=== PATIENT | female | born 1940 | race African-American/Black ===

== ENCOUNTER 2017-12-08 05:40 | Inpatient (IN) ==
[~2017-12-08 05:40] MED LIST: FAMOTIDINE 20 MG TABLET PO ONE
[2017-12-08] MEDS ORDERED: ceFAZolin 1,000 MG in SYRINGE 1 EACH IV ONE (06:00)
[2017-12-08] MEDS ORDERED: VANCOMYCIN INJ 1,000 MG in SODIUM CHLORIDE 0.9% 250 ML IV ONE (06:00)
[2017-12-08] MEDS ORDERED: FAMOTIDINE 20 MG TABLET PO ONE (06:00)
[2017-12-08] MEDS ORDERED: DIAZEPAM 5 MG TABLET PO ONE (06:00)
[2017-12-08] MEDS ORDERED: TRANEXAMIC ACID 1,000 MG/10 ML VIAL ONE (06:34)
[2017-12-08] MEDS ORDERED: BACITRACIN OINT 0.9 GM PACK TOP ONE (06:34)
[2017-12-08] MEDS ORDERED: BUPIVACAINE SPINAL 0.75% 2 ML AMP SPINAL ONE (06:55)
[2017-12-08] MEDS ORDERED: VANCOMYCIN 1,000 MG VIAL ONE (07:08)
[2017-12-08] MEDS ORDERED: ceFAZolin 1,000 MG VIAL ONE (07:08)
[2017-12-08] MEDS ORDERED: DIAZEPAM 5 MG TABLET ONE (07:09)
[2017-12-08] MEDS ORDERED: FAMOTIDINE 20 MG TABLET ONE (07:09)
[2017-12-08] MEDS ORDERED: LACTATED RINGERS 1,000 ML IV SCH (07:30)
[2017-12-08] MEDS ORDERED: ONDANSETRON 4 MG/2 ML VIAL IV PRN ×2 (07:54→09:53)
[2017-12-08] MEDS ORDERED: ZALEPLON 5 MG CAPSULE PO PRN (07:54)
[2017-12-08] MEDS ORDERED: MAGNESIUM HYDROXIDE SUSP 30 ML UDCUP PO PRN (07:54)
[2017-12-08] MEDS ORDERED: diphenhydrAMINE CAP 25 MG CAPSULE PO PRN (07:54)
[2017-12-08] MEDS ORDERED: oxyCODONE IR 5 MG TABLET PO PRN ×2 (07:54)
[2017-12-08 09:09] LABS: Apearance,Urine CLEAR (Clear); Bilirubin,Urine Negative (Negative); Blood, Urine Negative (Negative); Glucose,Urine (UA) Negative (Negative); Ketones,Urine Negative (Negative); Nitrite,Urine Negative (Negative); Protein,Urine Negative; RBC,Urine 2 /HPF (0-4); Squamous Epithelial Cell,Urine Occasional /HPF (0-10); Urine Color Colorless (Yellow); Urine Specific Gravity 1.006 (1.001-1.035); Urine Urobilinogen < 2.0 EU/DL (0.2-1.0); WBC,Urine <1 /HPF (0-6)
[2017-12-08] MEDS ORDERED: SEVOFLURANE 1 UNIT/15 MINUTE INH ONE (09:36)
[2017-12-08] MEDS ORDERED: PROPOFOL 200 MG/20 ML VIAL IV ONE (09:36)
[2017-12-08] MEDS ORDERED: fentaNYL 100 MCG/2 ML VIAL ONE (09:36)
[2017-12-08] MEDS ORDERED: MIDAZOLAM 2 MG/2 ML VIAL ONE (09:36)
[2017-12-08] MEDS ORDERED: ONDANSETRON 4 MG/2 ML VIAL ONE (09:37)
[2017-12-08] MEDS ORDERED: ePHEDrine 50 MG/ML AMP ONE (09:37)
[2017-12-08] MEDS ORDERED: NEOSTIGMINE 10 MG/10 ML VIAL ONE (09:37)
[2017-12-08] MEDS ORDERED: ROCURONIUM 100 MG/10 ML VIAL IV ONE (09:37)
[2017-12-08] MEDS ORDERED: SODIUM CHLORIDE 0.9% 100 ML IV ONE ×2 (09:37→09:38)
[2017-12-08] MEDS ORDERED: LACTATED RINGERS 1,000 ML IV ONE (09:37)
[2017-12-08] MEDS ORDERED: GLYCOPYRROLATE 0.4 MG/2 ML VIAL ONE (09:37)
[2017-12-08] MEDS ORDERED: ACETAMINOPHEN 1,000 MG/100 ML VIAL IV ONE (09:37)
[2017-12-08] MEDS ORDERED: PHENYLEPHRINE 10 MG/1 ML VIAL IV ONE (09:38)
[2017-12-08] MEDS: HYDROmorphone 2 MG/1 ML VIAL IV PRN ×2 (09:56→10:05)
[2017-12-08] MEDS: KETOROLAC 15 MG/1 ML VIAL IV SCH ×3 (11:57→23:06)
[2017-12-08] MEDS: ACETAMINOPHEN 500 MG TABLET PO SCH ×3 (12:11→23:06)
[2017-12-08] MEDS: MORPHINE 4 MG/1 ML VIAL IV PRN ×2 (12:12→18:39)
[2017-12-08] MEDS: POTASSIUM CHLORIDE INJ 40 MEQ in LACTATED RINGERS 1,000 ML IV SCH ×2 (12:18→20:44)
[2017-12-08] MEDS: ceFAZolin 2,000 MG in PREMIX 1 EACH IV SCH ×2 (12:18→20:46)
[2017-12-08] MEDS ORDERED: TUBERCULIN SKIN TEST 0.1 ML SYRINGE INTRADERM ONE (15:50)
[2017-12-08] MEDS: DOCUSATE SODIUM 100 MG CAPSULE PO SCH ×2 (18:45→20:44)
[2017-12-09] MEDS: FONDAPARINUX 2.5 MG/0.5 ML SYRINGE SUBCUT SCH (01:37)
[2017-12-09] MEDS: MORPHINE 4 MG/1 ML VIAL IV PRN ×3 (04:06→16:52)
[2017-12-09] MEDS: ACETAMINOPHEN 500 MG TABLET PO SCH (04:55)
[2017-12-09] MEDS: KETOROLAC 15 MG/1 ML VIAL IV SCH (04:55)
[2017-12-09] MEDS: POTASSIUM CHLORIDE INJ 40 MEQ in LACTATED RINGERS 1,000 ML IV SCH (04:55)
[2017-12-09 05:47] LABS: Basophils % 0.4 % (0.0-0.8); Eosinophils # 0.2 10*3/uL (0.0-0.87); Eosinophils % 2.6 % (0.00-10.9); Hemoglobin 9.9 GM/DL (12.0-16.0); Immature Granulocytes % 0.4 %; Immature Granulocytes Absolute 0.03 #; Lymphocytes # 1.9 10*3/uL (1.4-4.0); Lymphocytes % 24.4 % (21.3-54.2); Mean Corpuscular HGB Conc 31.9 GM/DL (32-36); Mean Corpuscular Hemoglobin 24 PG (27-34); Mean Corpuscular Volume 76.5 FL (87-102); Mean Platelet Volume 11.5 FL (9.6-12.0); Monocytes # 0.6 10*3/uL (0.11-0.8); Monocytes % 7.5 % (1.7-12.7); Neutrophils % 64.7 % (38.7-73.9); Platelet Count 207 T/CUMM (130-400); Red Blood Count 4.05 MC/CUMM (3.8-5.5); Red Cell Distribution Width 16.1 % (9.3-17.3); White Blood Count 7.7 T/CUMM (4-12)
[2017-12-09 06:16] LABS: Calcium 8.1 MG/DL (8.5-10.1); Osmolality,Calculated 273.8 MOS/KG (273-304); Potassium 4.2 MMOL/L (3.5-5.1)
[2017-12-09] MEDS: VALSARTAN/HCTZ 160-12.5 MG TABLET PO SCH (09:33)
[2017-12-09] MEDS: POTASSIUM CHLORIDE 20 MEQ TABLET PO SCH (09:34)
[2017-12-09] MEDS: DOCUSATE SODIUM 100 MG CAPSULE PO SCH ×2 (09:34→20:53)
[2017-12-09] MEDS: amLODIPine 5 MG TABLET PO SCH (09:34)
[2017-12-09] MEDS: LEVOTHYROXINE 125 MCG TABLET PO SCH (09:34)
[2017-12-09] MEDS: CELECOXIB 200 MG CAPSULE PO SCH (16:40)
[2017-12-10] MEDS: MORPHINE 4 MG/1 ML VIAL IV PRN ×4 (01:59→22:39)
[2017-12-10] MEDS: FONDAPARINUX 2.5 MG/0.5 ML SYRINGE SUBCUT SCH (01:59)
[2017-12-10 05:32] LABS: Basophils % 0.4 % (0.0-0.8); Eosinophils # 0.3 10*3/uL (0.0-0.87); Eosinophils % 2.9 % (0.00-10.9); Hematocrit 30.8 VOL% (35.7-47.0); Hemoglobin 9.7 GM/DL (12.0-16.0); Immature Granulocytes % 0.5 %; Immature Granulocytes Absolute 0.05 #; Lymphocytes # 2.5 10*3/uL (1.4-4.0); Lymphocytes % 24.9 % (21.3-54.2); Mean Corpuscular HGB Conc 31.5 GM/DL (32-36); Mean Corpuscular Hemoglobin 24 PG (27-34); Mean Corpuscular Volume 76.4 FL (87-102); Mean Platelet Volume 11.7 FL (9.6-12.0); Monocytes # 0.8 10*3/uL (0.11-0.8); Monocytes % 7.6 % (1.7-12.7); Neutrophils # 6.5 10*3/uL (1.4-7.4); Neutrophils % 63.7 % (38.7-73.9); Platelet Count 233 T/CUMM (130-400); Red Blood Count 4.03 MC/CUMM (3.8-5.5); Red Cell Distribution Width 15.9 % (9.3-17.3); White Blood Count 10.2 T/CUMM (4-12)
[2017-12-10 06:03] LABS: Calcium 8.3 MG/DL (8.5-10.1)
[2017-12-10] MEDS: DOCUSATE SODIUM 100 MG CAPSULE PO SCH ×2 (08:51→21:09)
[2017-12-10] MEDS: VALSARTAN/HCTZ 160-12.5 MG TABLET PO SCH (08:51)
[2017-12-10] MEDS: CELECOXIB 200 MG CAPSULE PO SCH (08:51)
[2017-12-10] MEDS: POTASSIUM CHLORIDE 20 MEQ TABLET PO SCH (08:51)
[2017-12-10] MEDS: LEVOTHYROXINE 125 MCG TABLET PO SCH (08:51)
[2017-12-10] MEDS: amLODIPine 5 MG TABLET PO SCH (08:51)
[2017-12-11] MEDS: FONDAPARINUX 2.5 MG/0.5 ML SYRINGE SUBCUT SCH (01:09)
[2017-12-11 04:41] LABS: Basophils % 0.4 % (0.0-0.8); Eosinophils # 0.5 10*3/uL (0.0-0.87); Eosinophils % 4.9 % (0.00-10.9); Hematocrit 30.9 VOL% (35.7-47.0); Hemoglobin 9.7 GM/DL (12.0-16.0); Immature Granulocytes % 0.3 %; Immature Granulocytes Absolute 0.03 #; Lymphocytes # 2.5 10*3/uL (1.4-4.0); Lymphocytes % 25.7 % (21.3-54.2); Mean Corpuscular HGB Conc 31.4 GM/DL (32-36); Mean Corpuscular Hemoglobin 24 PG (27-34); Mean Corpuscular Volume 76.3 FL (87-102); Mean Platelet Volume 10.9 FL (9.6-12.0); Monocytes # 0.9 10*3/uL (0.11-0.8); Monocytes % 9.2 % (1.7-12.7); Neutrophils # 5.7 10*3/uL (1.4-7.4); Neutrophils % 59.5 % (38.7-73.9); Platelet Count 218 T/CUMM (130-400); Red Blood Count 4.05 MC/CUMM (3.8-5.5); Red Cell Distribution Width 15.9 % (9.3-17.3); White Blood Count 9.6 T/CUMM (4-12)
[2017-12-11 05:20] LABS: Calcium 8.4 MG/DL (8.5-10.1); Osmolality,Calculated 273.8 MOS/KG (273-304); Potassium 3.8 MMOL/L (3.5-5.1)
[2017-12-11] MEDS: VALSARTAN/HCTZ 160-12.5 MG TABLET PO SCH (09:11)
[2017-12-11] MEDS: POTASSIUM CHLORIDE 20 MEQ TABLET PO SCH (09:11)
[2017-12-11] MEDS: amLODIPine 5 MG TABLET PO SCH (09:11)
[2017-12-11] MEDS: DOCUSATE SODIUM 100 MG CAPSULE PO SCH (09:11)
[2017-12-11] MEDS: CELECOXIB 200 MG CAPSULE PO SCH (09:11)
[2017-12-11] MEDS: LEVOTHYROXINE 125 MCG TABLET PO SCH (09:11)
[2017-12-11 11:23] VITALS: BP 147/66
== END 2017-12-11 10:40 | disposition swing bed (61) | DRG 470 ==
LOC: N.OR 05:40 → N.SDSINP 05:44 → N.3E 10:33
PROVIDERS: ADMIT Orthopaedic Surgery; ATTEND Orthopaedic Surgery